=== PATIENT | female | born 1995 ===

== ENCOUNTER → 2018-05-30 12:58 | Emergency (ER) | payer OTHER ==
[~2018-05-30 12:58] MED LIST: Magnesium Oxide TAB* 400 MG PO ONE; NS 0.9% 1000 ML* 1,000 ML IV ONE
--- NOTE | 2018-05-30 13:44 | ED ---
Syncope/Near Syncope - HPI Summary HPI Summary: This pt is a 22 y/o female presenting to [facility] c/o syncope today. 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 She was setting up a presentation in a conference room , pt was bent down slightly when she suddenly syncopized. Pt states her vision went black and she "blacked out" for a few seconds, after she heard people talking. She notes people helped her sit on a chair. Pt reports feeling chest pain, described as squeezing pressure. Denies headache, blurry vision, chest pain prior to syncopal episode. She states that on her way to class, prior to setting up the presentation, her vision went black. Pt denies having had syncopal episodes in the past. LMP: a few days ago. Pt did not eat breakfast today. - History Of Current Complaint Chief Complaint: EDSyncope Time Seen by Provider: 05/30/18 13:19 Hx Obtained From: Patient Onset/Duration: Sudden Onset, Resolved Timing: Seconds Context: Witnessed Activity At Onset: Other - while bending Associated Head Trauma: No Aggravating Factor(s): Nothing Alleviating Factor(s): Spontaneous Resolution Associated Signs And Symptoms: Chest Pain, Pain - chest pain - Allergies/Home Medications Allergies/Adverse Reactions: Allergies Allergy/AdvReac Type Severity Reaction Status Date / Time No Known Allergies Allergy Verified 05/30/18 13:03 Home Medications: Home Medications NK [No Home Medications Reported] 05/30/18 [History Confirmed 05/30/18] PMH/Surg Hx/FS Hx/Imm Hx Endocrine/Hematology History: Denies: Hx Diabetes Cardiovascular History: Denies: Hx Hypertension - Surgical History Surgery Procedure, Year, and Place: none Infectious Disease History: No Infectious Disease History: Denies: Traveled Outside the [place] in Last 30 Days - Family History Known Family History: Positive: Diabetes - grandmother Negative: Cardiac Disease, Hypertension - Social History Alcohol Use: Occasionally Substance Use Type: Reports: None Smoking Status (MU): Never Smoked Tobacco Review of Systems Negative: Fever, Chills Eyes: Other - vision went black Negative: Blurred Vision Positive: Chest Pain Negative: Shortness Of Breath Genitourinary: Negative Musculoskeletal: Negative Positive: Syncope All Other Systems Reviewed And Are Negative: Yes Physical Exam - Summary Physical Exam Summary: VITAL SIGNS: Reviewed. GENERAL: Patient is a well-developed and nourished female who is lying comfortable in the stretcher. Patient is not in any acute respiratory distress. HEAD AND FACE: No signs of trauma. No ecchymosis, hematomas or skull depressions. No sinus tenderness. EYES: PERRLA, EOMI x 2, No injected conjunctiva, no nystagmus. EARS: Hearing grossly intact. Ear canals and tympanic membranes are within normal limits. MOUTH: Oropharynx within normal limits. NECK: Supple, trachea is midline, no adenopathy, no JVD, no carotid bruit, no c- spine tenderness, neck with full ROM. CHEST: Symmetric, no tenderness at palpation LUNGS: Clear to auscultation bilaterally. No wheezing or crackles. CVS: Regular rate and rhythm, S1 and S2 present, no murmurs or gallops appreciated. ABDOMEN: Soft, non-tender. No signs of distention. No rebound, no guarding, and no masses palpated. Bowel sounds are normal. EXTREMITIES: FROM in all major joints, no edema, no cyanosis or clubbing. NEURO: Alert and oriented x 3. No acute neurological deficits. Speech is normal and follows commands. SKIN: Dry and warm Triage Information Reviewed: Yes Vital Signs On Initial Exam: Initial Vitals Temp Pulse Resp BP Pulse Ox 97.6 F 75 16 107/74 99 05/30/18 13:05 05/30/18 13:05 05/30/18 13:05 05/30/18 13:05 05/30/18 13:05 Vital Signs Reviewed: Yes Diagnostics - Vital Signs Vital Signs Temp Pulse Resp BP Pulse Ox 05/30/18 13:05 97.6 F 75 16 107/74 99 - Laboratory Result Diagrams: 05/30/18 13:43 05/30/18 13:43 Lab Statement: Any lab studies that have been ordered have been reviewed, and results considered in the medical decision making process. - Radiology Chest XR Xray Interpretation: No Acute Changes - IMPRESSION: No active cardiopulmonary disease is noted. Dr. Sylvester has reviewed this report. Radiology Interpretation Completed By: Radiologist - EKG 13:31 Cardiac Rate: NL - at 68 bpm EKG Rhythm: Sinus Rhythm EKG Interpretation: No ST elevations. Course/Dx Assessment/Plan: This pt is a 22 y/o female presenting to [facility] c/o syncope today. 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 She was setting up a presentation in a conference room, pt was bent down slightly when she suddenly syncopize. Pt states her vision went black and she "blacked out" for a few seconds, after she heard people talking. She notes people helped her sit on a chair. Pt reports feeling chest pain, described as squeezing pressure. Denies headache, blurry vision, chest pain prior to syncopal episode. She states that on her way to class, prior to setting up the presentation, her vision went black. Pt denies having had syncopal episodes in the past. LMP: a few days ago. Pt did not eat breakfast today. Blood tests without any significant abnormality except for glucose of 107, lactic acid was 2.4, magnesium 1.8, urinalysis is contaminated. In the ED course the patient was given IV fluids because I think the patient was dehydrated and she did not have any breakfast this morning. Therefore I think the patient had a vasovagal syncope. Also she reports that there is a questionable loss of consciousness. She was also given magnesium by mouth. The lactic acid was slightly elevated however the patient doesn't have any fever nor a white blood cell count therefore there are no signs of infection. I also have no suspicion for PE since the d-dimer is negative the patient is not hypoxic or tachycardic. The EKG did not show any arrhythmia at this point. The patient has been alert and oriented 3. The patient is eating and drinking and she requests to go home. She declined a repeat lactic acid after hydration. Therefore at this point the patient will be discharged home with follow-up from primary care physician. Patient is hemodynamically stable, alert and oriented 3. - Diagnoses Differential Diagnosis/HQI/PQRI: Positive: Dysrhythmia, Metabolic Reaction, Vasovagal Episode Provider Diagnoses: Vasovagal syncope Discharge - Sign-Out/Discharge Documenting (check all that apply): Patient Departure - Discharge home - Discharge Plan Condition: Stable Disposition: HOME Patient Education Materials: Syncope (ED) Referrals: [facility] [Outside] [facility] [Outside] Additional Instructions: FOLLOW UP WITH YOUR PRIMARY CARE PROVIDER IN 2-3 DAYS EITHER AT [facility] OR [facility]. RETURN TO THE ED FOR ANY NEW OR WORSENING SYMPTOMS. - Billing Disposition and Condition Condition: STABLE Disposition: Home - Attestation Statements Document Initiated by Scribe: Yes Documenting Scribe: Belinda Graham Provider For Whom Scribe is Documenting (Include Credential): Jeremiah Sylvester MD Scribe Attestation: I, Belinda Graham, scribed for Jeremiah Sylvester MD on 05/31/18 at 0743. Scribe Documentation Reviewed: Yes Provider Attestation: The documentation as recorded by the Belinda looney accurately reflects the service I personally performed and the decisions made by me, Jeremiah Sylvester MD
[2018-05-30 13:57] LABS: ABS Basophils 0 10^3/ul (0-0.2); ABS Eosinophils 0.1 10^3/ul (0-0.6); ABS Lymphocytes 1.2 10^3/ul (1.0-4.8); ABS Monocytes 0.3 10^3/ul (0-0.8); ABS Neutrophils 4.6 10^3/ul (1.5-7.7); ABS Nucleated RBC 0 10^3/ul; Eosinophil % 1.3 % (0-6); Hematocrit 39 % (35-47); Hemoglobin 13.5 g/dl (12.0-16.0); Lymphocyte % 19.5 % (25-47); Mean Corpuscular HGB Conc 34 g/dl (31-36); Mean Corpuscular Hemoglobin 30 pg (27-31); Mean Corpuscular Volume 87 fL (80-97); Mean Platelet Volume 8.6 um3 (7.4-10.4); Nucleated Red Blood Cells % 0.1; Platelet Count 238 10^3/ul (150-450); Red Blood Count 4.53 10^6/ul (4.00-5.40); Red Cell Distribution Width 13 % (10.5-15); White Blood Count 6.3 10^3/ul (3.5-10.8)
--- NOTE | 2018-05-30 14:13 | RAD ---
Indication: Syncope. 2 views of the chest including dual energy PA views demonstrate no mediastinal shift. Heart is of normal size and configuration. Lung velez are clear. IMPRESSION: No active cardiopulmonary disease is noted.
[2018-05-30 14:22] LABS: EGFR Non-African American 85.3 (>60)
[2018-05-30 15:49] LABS: Urine Appearance Cloudy; Urine Blood Negative (Negative); Urine Color Yellow; Urine Ketones Negative (Negative); Urine Protein Negative (Negative); Urine Red Blood Cell Absent (Absent); Urine Specific Gravity 1.008 (1.010-1.030); Urine Urobilinogen Negative (Negative); Urine White Blood Cell 2+(11-20/hpf) (Absent)
[2018-05-30 16:26] VITALS: BP 124/70
== END | disposition home or self-care (01) ==
LOC: ED 12:58
DX: R55 Syncope and collapse (principal)
CPT/HCPCS: 36415; 71046; 80053; 80307; 80320; 81003; 81015; 83605; 83735; 83880; 84443; 84484; 84702; 85025; 85379; 85730; 87086; 93005; 96360; 99283; G0480